=== PATIENT | male | born 1985 | race Two or more races ===

== ENCOUNTER → 2017-01-01 | Outpatient (CLI) | payer SELFPAY ==
--- NOTE | ~2017-01-01 | US6 ---
[facility] A Service of [facility] RADIOLOGY TEXT RESULTS PATIENT: MENDEZ SERRATO LOCATION: [facility] : 85 UNIT #: [id number] AGE: [address]: David Case MD SEX: M ORDER DR: [id number] [facility] [address] [place], [place] [address] [id number] O MR#: [id number] Acc #: [id number] NAME: MENDEZ SERRATO : 1985 SEX: M STUDY DATE/TIME: 01/01/2017 9:31 UNIT: US ROOM: STUDY DESCRIPTION: US Abdominal Limited Attending Physician: David Case M.D. Referring Physician: David Case M.D. Ordering Physician: David Case M.D. Primary Care Physician: David Case M.D. MEDICAL IMAGING REPORT This report is preliminary unless electronic signature is present EXAM Right upper quadrant ultrasound 01/01/2017 HISTORY Abnormally elevated liver enzymes, elevated transaminase and lactic acid dehydrogenase 10/30/2016 FINDINGS Ultrasound examination of the gallbladder is negative. There is no cholelithiasis, gallbladder wall thickening, or bile duct dilatation. The visualized liver is negative. IMPRESSION Negative gallbladder ultrasound examination. Dictated by... Soy Julian M.D. THIS IS AN ELECTRONICALLY VERIFIED REPORT Soy Julian M.D. at 01/02/2017 8:00 AM ERICK/jeny TD: 01/01/2017 11:51 JOB #: [id number] MEDICAL IMAGING REPORT Page 1 of 1 COPY
== END | disposition home or self-care (01) ==
LOC: CGUS 11-09 09:00
DX: R74.0 Nonspecific elevation of levels of transaminase and lactic acid dehydrogenase [LDH] (principal)
CPT/HCPCS: 76705